=== PATIENT | male | born 1980 ===

== ENCOUNTER 2020-08-31 12:21 | Emergency (ER) | payer OTHER ==
[~2020-08-31] VITALS: Ht 172.7 cm; Wt 68.0 kg
[2020-08-31] MEDS ORDERED: KEFLEX750 MG PO (13:51)
== END 2020-08-31 14:03 | disposition home or self-care (01) ==
LOC: ER 12:21
DX: S61.422A Laceration with foreign body of left hand, initial encounter (principal); W45.8XXA Other foreign body or object entering through skin, initial encounter; Y93.89 Activity, other specified; Y92.69 Other specified industrial and construction area as the place of occurrence of the external cause; Y99.8 Other external cause status

== ENCOUNTER 2020-09-07 10:12 | Emergency (ER) | payer OTHER ==
[~2020-09-07] VITALS: Ht 167.6 cm; Wt 68.0 kg
[~2020-09-07 10:12] MED LIST: KEFLEX750 MG PO
== END 2020-09-07 11:26 | disposition home or self-care (01) ==
LOC: ER 10:12
DX: Z48.02 Encounter for removal of sutures (principal)